=== PATIENT | female | born 1950 | race Caucasian/White ===

== ENCOUNTER 2019-01-07 00:50 | Outpatient (CLI) | payer MEDICARE, OTHER, SELFPAY ==
--- NOTE | 2019-01-07 15:00 | DI.RAD_ITS ---
SYMPTOMS/DIAGNOSIS: SCREENING FOR OSTEOPOROSIS IN A POSTMENOPAUSAL WOMAN, Z78.0 DEXA SCAN: Routine examination. Comparison is 2006. Evaluation of the lateral spine shows no compression fracture deformities. Evaluation of the left hip shows a total T score of -1.6 and a Z score of -0.3, consistent with osteopenia and an increased fracture risk. This compares with a total T score of -1.5 from the prior examination. Evaluation of the lumbar spine shows a total T score of -2.5 and a Z score of - 0.6. This is consistent with osteoporosis and a high fracture risk. This compares with a total T score of -2.6 from 2007. IMPRESSION: Osteoporosis in the lumbar spine.
--- NOTE | 2019-01-07 15:02 | DI.MAMMO_ITS ---
SYMPTOM/DIAGNOSIS: SCREENING, Z12.31, FAMILY H/O BREAST CA IN SISTER MAMMOGRAMS: Mammograms were interpreted according to the usual protocol including computer analysis with CAD system, tomosynthesis and C view imaging. Comparison is with the prior examinations. No suspicious masses or microcalcifications are seen. There is no definite evidence of malignancy. IMPRESSION: Negative mammogram. Routine screening is recommended. Category 1, breast density B. SA ASSESSMENT OF FINDINGS: Negative. Category 1. Patient will receive a letter notifying them of these results. BI-RADS category B. There are scattered areas of fibroglandular density.
== END 2019-01-07 01:10 ==
PROVIDERS: PCP Family Medicine; Visit Provider Family Medicine
DX: M81.0 Age-related osteoporosis without current pathological fracture (principal); Z78.0 Asymptomatic menopausal state; Z12.31 Encounter for screening mammogram for malignant neoplasm of breast
CPT/HCPCS: 77063; 77067; 77080

== ENCOUNTER → 2019-02-14 10:21 | Outpatient (BNVA) | payer MEDICARE, OTHER, SELFPAY | PROVIDERS: PCP Family Medicine; Referring Provider Family Medicine; Visit Provider Physical Therapy Assistant | DX: Z12.11 Encounter for screening for malignant neoplasm of colon (principal); I10 Essential (primary) hypertension ==

== ENCOUNTER 2019-03-05 10:00 | Outpatient (REF) | payer MEDICARE, OTHER, SELFPAY ==
[2019-03-05 13:04] LABS: HCT 44.3 % (36.0-46.0); HGB 14.9 g/dL (12.0-15.5); Mean Corp. HGB Concentration 33.6 g/dL (32.0-36.0); Mean Corpuscular Hemoglobin 30.2 pg (27.0-33.0); Mean Corpuscular Volume 89.7 fL (80-95); Mean Platelet Volume 10.6 fL (8.0-11.0); Platelet Count 294 x1000/uL (130-400); RBC 4.94 m/cumm (4.00-5.20); RBC Distribution Width 14.4 % (11.7-14.6); White Blood Cell Count 12.23 k/cumm (4.4-10.8)
[2019-03-05 13:26] LABS: ALT 37 U/L (12-78); AST 27 U/L (15-37); Albumin 3.6 g/dL (3.4-5.0); Alkaline Phosphatase 107 U/L (46-116); Anion Gap 10.9 mmol/L (3-11); BUN 14 mg/dL (7-18); Bilirubin, Total 0.2 mg/dL (0.2-1.0); CO2 25.1 mmol/L (21.0-32.0); CREATININE 1.05 mg/dL (0.55-1.02); Calcium 9.1 mg/dL (8.5-10.1); Calculated LDL 78 mg/dL; Chloride 105 mmol/L (98-107); Cholesterol 140 mg/dL (50-200); Estimated GFR 52.43 (mL/min/1.73m2); Glucose 108 mg/dL (70-100); HDL Cholesterol 32 mg/dL (40-60); Potassium 4.4 mmol/L (3.5-5.1); Sodium 141 mmol/L (136-145); TSH (W/Ref FT4) 2.15 uIU/mL (0.358-3.74); Total Protein 7.2 g/dL (6.4-8.2); Triglyceride 150 mg/dL (30-150)
== END 2019-03-05 10:20 ==
LOC: NCHCN 10:00
PROVIDERS: PCP Family Medicine; Visit Provider Family Medicine
DX: E04.1 Nontoxic single thyroid nodule (principal); E66.9 Obesity, unspecified
CPT/HCPCS: 80053; 80061; 83721; 85027; 84443

== ENCOUNTER 2019-03-10 06:17 | Day surgery (SDC) | payer MEDICARE, OTHER, SELFPAY ==
[2019-03-10 06:31] VITALS: BP 143/103; PULSE 115; RESP 19; TEMP 37.1; O2SAT 95
--- NOTE | 2019-03-10 06:46 | W.COLOREPORT ---
Date of service: 03/10/19 Time of Service: : Colonoscopy Report Date of procedure: 03/10/19 Pre-op diagnosis general: Colon Cancer Screening Post-op diagnosis procedure note: other (Splenic flexure polyp) Procedure: Colonoscopy with polypectomy by cold forceps Surgeon: Samara Fortune Anesthesia proc note operative: other (General/ ASA 2/Karson Miller, ROGELIO) Estimated blood loss (mL): 3 Pathology: other (splenic flexure polyp) Complications: None Disposition: same day Indications: Mrs. Johnston was seen in the office for a screening colonoscopy. She denies any changes in bowel habits. Risks, benefits and complications have been reviewed. Complications include but are not limited to bleeding, pain, perforation, missed small lesion/polyp, sore throat, aspiration and adverse reaction to the medications. Questions were entertained and answered to their satisfaction and they wished to proceed. No guarantees were given or implied. Prep: Miralax/Dulcolax Procedure Start Time: :27 Procedure End Time: 07:59 Retraction Time: 17 minutes Findings: One small polyp at the splenic flexure Procedure Description: After informed consent was obtained the patient was taken to the procedure room and placed in a left decubitous position. Monitors were applied and a time out was done. The patients name, date of , procedure, allergies to medications and metal in their body was reviewed. The patient was then sedated. Once sedated and comfortable a rectal exam was done. External exam was normal. Internal exam revealed a normal sphincter tone and no palpable masses. The scope was then introduced and retro-flexed. Grade 1 internal hemorrhoids were identified. The scope was then advanced to the cecum without difficulty. The TI and appendiceal orifice were identified. The prep was good. The scope was then slowly retracted over 17 minutes back into the rectum. Polyps were removed with cold forceps at the splenic flexure. The scope was removed and the patient was woken up and taken back to Same day surgery in stable condition. The patient tolerated the procedure well and there were no immediate complications. Follow up: The patient should follow up in 3-5 years unless they develop changes in bowel habits or other new gastrointestinal complaints.
[2019-03-10] MEDS: Lactated Ringers 1,000 ML 80 ML IV (06:51)
--- NOTE | 2019-03-10 06:51 | W.PM.DSUDISC ---
Discharge Plan Disposition Patient Disposition: HOME Condition: Good Discharge Details Reason For Visit: Colon Cancer Screening Attending Provider: Samara Fortune Primary Care Provider: Marisol Stephens Home Meds and New Rx's Prescriptions: Continued naproxen 500 mg tablet 500 mg PO BID RF: 0 simvastatin 20 MG tablet 20 mg PO HS RF: 0 omeprazole [Prilosec] 20 MG capsule,delayed release(DR/EC) 20 mg PO BID RF: 0 oxycodone 5 MG tablet 5 mg PO BID RF: 0 clonidine HCl 0.1 MG tablet 0.1 mg PO DAILY RF: 0 tramadol 50 MG tablet 50 mg PO PRN PRNRF: 0 trazodone 100 MG tablet 100 mg PO HS RF: 0 zolpidem 10 MG tablet 10 mg PO HS RF: 0 Lyrica 50 MG capsule 50 mg PO HS RF: 0 venlafaxine 150 MG tablet extended release 24hr 225 mg PO DAILY RF: 0 vitamin E 1,000 unit Capsule 2,000 unit PO DAILY RF: 0 calcium carbonate [Calcium 600] 600 mg calcium (1,500 mg) Tablet 1,200 mg PO BID RF: 0 Centrum Silver Women 8 mg iron-400 mcg-300 mcg Tablet 1 tab PO DAILY RF: 0 Discontinued polyethylene glycol 3350 17 gram/dose powder 238 g PO ONCE Qty: 238 RF: 0 bisacodyl [Dulcolax (bisacodyl)] 5 mg tablet,delayed release (DR/EC) 5 mg PO ONCE Qty: 4 RF: 0 Discharge Instructions Instructions: Colonoscopy (DC), Colorectal Polyps (DC) Additional Instructions: Findings: one polyp at the splenic flexure Follow up: 3-5 years Please call if you develop: fevers >101.5 Nausea or Vomiting Abdominal pain that is not transient DAY SURGERY UNIT POST COLONOSCOPY INSTRUCTIONS 1. Because there will be medication in your system for the next 24 hours, you may feel a little sleepy. Your coordination will be affected. Therefore: a. Do not drive or operate dangerous equipment for 24 hours. b. Do not drink alcohol beverages for 24 hours (not even beer). c. Plan to go home and rest for the day. 2. Generally there are no restrictions on your activity after a day or so has gone by, but you may feel a bit fatigued for a few days. 3 After you arrive home you may have a light meal and return to a normal diet as you can tolerate it without feeling sick to your stomach. 4. After surgery, you may feel pain or discomfort. This should be only transient, but if it persists please contact your doctor. 5. If there are any questions regarding the findings of your procedure, please feel free to contact your doctor. 6. If you are unable to contact your doctor with a problem, contact the hospital at [phone]. 7. Continue all your regular medications unless directed otherwise. I understand the above instructions and have no questions. Signature of Patient or Responsible Adult Escort Date/Time Name of Responsible Adult Escort Signature of Nurse Date/Time Activity:: Activity as Tolerated Diet:: As Tolerated Discharge Orders Discharge Orders: Discharge Order (Routine); Ordered 03/10/19 Ordered By: Samara Fortune DS: Diagnosis Discharge Diagnosis (1) S/P colonoscopy: Status: Acute (2) Colorectal polyp detected on colonoscopy: Status: Acute
--- NOTE | 2019-03-10 07:54 | BOWEL_PTH ---
PATIENT: Zuleyma Johnston LOC: [facility] U#:[id number] AGE/SX: 68/F ROOM: RE03/10/[address]: Samara Fortune MD : 1950 BED: DIS: 03/10/2019 SPEC #: [id number] RECD: 03/10/19 12:42 STATUS: MATTHEW REQ #: [id number] YULIYA: 03/10/19 07:[address]: Samara Fortune DEPT: Surgical Specimen RECD BY: Akilah Amos ENTERED: 03/10/19 12:43 SP TYPE: Bowel OTHR DR: Marisol Stephens Tissues: 1 - BIOPSY BOWEL Procedures: GROSS AND MICRO LEVEL 4 Comments: [id number]
[2019-03-10 09:08] VITALS: BP 146/50; PULSE 88; RESP 16; TEMP 36.6; O2SAT 95
== END 2019-03-10 09:28 | disposition home or self-care (01) ==
PROVIDERS: PCP Family Medicine; Visit Provider Surgery
PROC: 0DJD8ZZ Inspection of Lower Intestinal Tract, Via Natural or Artificial Opening Endoscopic (ICD-10-PCS; CPT 45378; principal; 2019-03-10 07:30)
DX: Z12.11 Encounter for screening for malignant neoplasm of colon (principal); D12.4 Benign neoplasm of descending colon; K64.0 First degree hemorrhoids; K21.9 Gastro-esophageal reflux disease without esophagitis
CPT/HCPCS: 45380; 88305

== ENCOUNTER 2019-04-30 12:34 | Emergency (ER) | payer MEDICARE, OTHER, SELFPAY ==
[2019-04-30 12:44] VITALS: BP 138/73; PULSE 90; RESP 16; TEMP 36.6; O2SAT 95
--- NOTE | 2019-04-30 12:55 | DI.US_ITS ---
SYMPTOMS/DIAGNOSIS: CALF SWELLING, TENDERNESS FOR 4 WKS RIGHT LOWER EXTREMITY ULTRASOUND: The deep veins of the right lower extremity show normal compression, augmentation and color flow. No evidence of a deep venous thrombus is identified. The saphenofemoral junction is unremarkable. There is edema seen in the soft tissues of the lower extremity. There are some small fluid collections seen in the soft tissues of the lower extremity. The largest is seen posterior to the knee and measures 3.9 x 0.9 x 2.0 cm. This may represent a popliteal cyst. The possibility of resolving hematomas or seromas or abscesses can not be entirely excluded. Please correlate with the patient's clinical history. IMPRESSION: 1. No evidence of a right lower extremity deep venous thrombus. 2. Edema in the right lower extremity soft tissues. 3. Fluid collections seen in the lower extremity as described above. The findings were discussed with the emergency department on the date of the examination.
--- NOTE | 2019-04-30 13:08 | W.ED.GENAD ---
Discharge Plan Disposition Patient Disposition: HOME Condition: Good Discharge Details Chief Complaint: Vascular Clinical Impression: Gunter's cyst, Knee pain, right Primary Care Provider: Marisol Stephens ED Provider: Deandre Pierre Home Meds and New Rx's Prescriptions: Continued naproxen 500 mg tablet 500 mg PO BID RF: 0 simvastatin 20 MG tablet 20 mg PO HS RF: 0 omeprazole [Prilosec] 20 MG capsule,delayed release(DR/EC) 20 mg PO BID RF: 0 oxycodone 5 MG tablet 5 mg PO BID RF: 0 clonidine HCl 0.1 MG tablet 0.1 mg PO DAILY RF: 0 tramadol 50 MG tablet 50 mg PO PRN PRNRF: 0 trazodone 100 MG tablet 100 mg PO HS RF: 0 zolpidem 10 MG tablet 10 mg PO HS RF: 0 pregabalin [Lyrica] 50 MG capsule 50 mg PO HS RF: 0 venlafaxine 150 MG tablet extended release 24hr 225 mg PO DAILY RF: 0 vitamin E 1,000 unit Capsule 2,000 unit PO DAILY RF: 0 calcium carbonate [Calcium 600] 600 mg calcium (1,500 mg) Tablet 1,200 mg PO BID RF: 0 Centrum Silver Women 8 mg iron-400 mcg-300 mcg Tablet 1 tab PO DAILY RF: 0 Discharge Instructions Instructions: Knee Pain (ED) Additional Instructions: At this time your ultrasound shows no evidence of blood clot per the radiologist and your x-ray shows no evidence of fracture. And concern for mild knee sprain and meniscal injury in addition to the Gunter's cyst causing her pain that we did notice on the ultrasound. Please use Tylenol and Motrin as needed for pain, keep the JABARI stockings on as often as possible. Use the knee brace as directed and continue to use the cane. If you notice any worsening of your symptoms, or any new symptoms such as vomiting, diarrhea, fever, chills, shortness of breath, chest pain, numbness, weakness, or fainting , please return immediately to the emergency department for reevaluation. Please follow up with your primary care provider as soon as possible for reassessment and reevaluation. As always, it was a pleasure participating in your medical care today. Referrals: Marisol Stephens [Primary Care Provider] - Medical Decision Making This is a pleasant 68-year-old female who presents today for 3 weeks of right calf and knee swelling and tenderness. Pain has not been improved with any home remedies. Exam demonstrates mild trace pitting edema, minimal swelling, mild to moderate tenderness over the calf. Risk factors are low for DVT, however signs and symptoms are concerning for this. We will get a ultrasound of her lower extremity to rule out significant DVT. 2:[address] Augustin from radiology sees no evidence of DVT on right lower extremity ultrasound, there is evidence of a potential Gunter's cyst. X-rays negative for acute process or fracture. Signs and symptoms do appear to clinically correlate with Gunter's cyst, however I am concerned for mild meniscal injury. We have the patient a hinged knee brace, she does not want crutches and would like to stick with her current cane. We will give JABARI stockings, recommend NSAIDs at home and close follow-up for potential repeat ultrasound and reassessment by PCP. If the patient fails conservative management with NSAIDs, knee brace, and stockings will recommend potential future orthopedic follow-up. I have extensively reviewed the treatment plan and discharge instructions with the patient. I have addressed all patient concerns at this time. The patient was made aware of what symptoms to monitor for that would warrant a return to the emergency department. Discussed the plan with the patient, they demonstrate verbal understanding and agreement with our assessment and plan at this time. HPI General Date/Time Provider Initiated Documentation: 04/30/19 12:35. HPI Narrative: This is a pleasant 68-year-old female who presents today for evaluation of right leg pain for the last 3 weeks. Patient states that she noticed mild swelling in her calf, which eventually progressed to her knee. Pain is made worse with ambulation, movement and touch. Swelling is mild to moderate. Not improved by any modifying factors. Denies PE risk factors such as recent long car rides, immobilization, recent surgery, prior history of DVT or PE, family history of PE or DVT, morbid obesity, exogenous estrogen and smoking, hemoptysis, history of cancer. She denies any chest pain, shortness of breath, pleuritic chest pain, arm neck or shoulder pain, chest tightness. She denies any exertional chest pain or shortness of breath symptoms. Related Data Home Medications Medication Instructions Recorded Confirmed omeprazole [Prilosec] 20 mg PO BID 09/08/13 04/30/19 oxycodone 5 mg PO BID 09/08/13 04/30/19 simvastatin 20 mg PO HS 09/08/13 04/30/19 clonidine HCl 0.1 mg PO DAILY 10/06/13 04/30/19 pregabalin [Lyrica] 50 mg PO HS 11/16/16 04/30/19 tramadol 50 mg PO PRN PRN 11/16/16 04/30/19 trazodone 100 mg PO HS 11/16/16 04/30/19 venlafaxine 225 mg PO DAILY 11/16/16 04/30/19 zolpidem 10 mg PO HS 11/16/16 04/30/19 naproxen 500 mg tablet 500 mg PO BID 01/16/19 04/30/19 calcium carbonate [Calcium 600] 1,200 mg PO BID 03/04/19 04/30/19 vitamin E 2,000 unit PO DAILY 03/04/19 04/30/19 Centrum Silver Women 1 tab PO DAILY 03/10/19 04/30/19 Allergies Allergy/AdvReac Type Severity Reaction Status Date / Time lorazepam AdvReac Severe looses all Unverified 04/30/19 12:47 memory codeine AdvReac Mild Nausea Unverified 04/30/19 12:47 General Stated Complaint: Vascular MARYJANE: 3 Review of Systems Review of Systems All systems reviewed & are unremarkable except as noted in HPI and below PFSH Medical History (Updated 03/10/19 @ 08:08 by Samara Fortune MD) Bilateral knee pain (Chronic) Chronic maxillary sinusitis (Chronic) Colorectal polyp detected on colonoscopy (Acute ~03/10/19) Constipation (Chronic) Depression (Chronic) Detached retina (Resolved) GERD (gastroesophageal reflux disease) (Chronic) Hyperlipidemia (Chronic) Insomnia (Chronic) Low back pain (Chronic) Menopause (Chronic) Obesity (Chronic) Thyroid nodule (Acute) Surgical History (Updated 03/10/19 @ 06:52 by Samara Fortune MD) History of colonoscopy (Chronic) History of tonsillectomy (Chronic) Hx of detached retina repair (Acute) OS x 2 w/contact S/P colonoscopy (Acute ~03/10/19) Social History Smoking/Tobacco Use Status: Current every day Tobacco Type: cigarettes Tobacco: How many years used: 50 Alcohol Intake: never Drug use: Never Substance use type: does not use Do you feel safe at home: Yes Do you feel safe in your relationship?: Yes Exam Narrative Exam Narrative: 1.Const: Well-nourished, Well-developed, appearing stated age 2.Eyes: PERRL, no conjunctival injection, and symmetrical lids. 3.ENT: Atraumatic external nose and ears. Moist MM. Neck: Symmetric, trachea midline, No thyromegaly. 4.CVS: +S1/S2, No murmurs or gallops. Peripheral pulses 2+ and equal in all extremities. Brisk capillary refill in all extremities. 5.RESP: Unlabored respiratory effort. Clear to auscultation bilaterally. No wheezes rales or rhonchi 6.GI: Soft, Nontender/Nondistended, No hepatosplenomegaly. No guarding or rebound. 7.MSK: Normocephalic/Atraumatic, Extremities w/o deformity. No cyanosis or clubbing, Normal movement of all extremities. Mild trace to +1 pitting edema in the right lower extremity. Notable tenderness in the calf, mild swelling around the right knee. No joint laxity, no significant worsening of tenderness with varus or valgus stressing. No evident of joint laxity for anterior posterior drawer test. Mild tenderness on palpation of the medial lateral aspect in general. No redness, no warmth. Radial pulse, dorsalis pedis and posterior tibial pulses +2 bilaterally. Brisk capillary refill, no temperature abnormality or difference between the 2 lower extremities. 8.Skin: Warm, Dry. No rashes or lesions. 9.Neuro: product safety lead II-XII grossly intact. Sensation grossly intact, no focal neurologic deficits. 10.Psych: (AAO) x3. Appropriate mood and affect Course Vital Signs Temperature 36.6 C 04/30/19 12:44 Pulse 90 04/30/19 12:44 Respiratory Rate 16 04/30/19 12:44 Blood Pressure 138/73 04/30/19 12:44 Pulse Oximetry 95 04/30/19 12:44 Temperature 36.6 C 04/30/19 12:44 Temperature Source Temporal Artery Scan 04/30/19 12:44 Pulse 90 04/30/19 12:44 Respiratory Rate 16 04/30/19 12:44 Blood Pressure 138/73 04/30/19 12:44 Blood Pressure Position Sitting 04/30/19 12:44 Pulse Oximetry 95 04/30/19 12:44 Oxygen Delivery Method Room Air 04/30/19 12:44 Oxygen Flow Rate 0 04/30/19 12:44
[2019-04-30 13:12] LABS: Abs Immature Grans 0.03 k/cumm (0.0-0.09); Absolute Basophil Count 0.05 k/cumm (0.0-0.2); Absolute Eosinophil Count 0.23 k/cumm (0.0-0.7); Absolute Lymphocyte Count 3.52 k/cumm (1.2-3.4); Absolute Monocyte Count 0.71 k/cumm (0.11-0.7); Basophils % 0.4; HCT 41.9 % (36.0-46.0); Immature Grans % 0.3; Mean Corp. HGB Concentration 33.4 g/dL (32.0-36.0); Mean Corpuscular Hemoglobin 29.9 pg (27.0-33.0); Mean Corpuscular Volume 89.5 fL (80-95); Mean Platelet Volume 9.6 fL (8.0-11.0); Monocytes % 6.1; Neutrophils % 61.2; Platelet Count 321 x1000/uL (130-400); RBC 4.68 m/cumm (4.00-5.20); RBC Distribution Width 14.2 % (11.7-14.6); White Blood Cell Count 11.72 k/cumm (4.4-10.8)
[2019-04-30 13:14] LABS: Absolute Neutrophil Count 7.17 k/cumm (1.2-6.7)
[2019-04-30 13:36] LABS: ALT 33 U/L (14-59); AST 23 U/L (15-37); Albumin 3.6 g/dL (3.4-5.0); Alkaline Phosphatase 100 U/L (46-116); BUN 8 mg/dL (7-18); Bilirubin, Total 0.3 mg/dL (0.2-1.0); Calcium 8.8 mg/dL (8.5-10.1); Chloride 104 mmol/L (98-107); Estimated GFR 55.47 (mL/min/1.73m2); Glucose 109 mg/dL (70-100); Potassium 4.1 mmol/L (3.5-5.1); Sodium 139 mmol/L (136-145); Total Protein 7.2 g/dL (6.4-8.2)
[2019-04-30 13:45] LABS: Prothrombin Time 10.2 sec (9.3-11.0)
--- NOTE | 2019-04-30 13:48 | DI.RAD_ITS ---
SYMPTOMS/DIAGNOSIS: PAIN AND SWELLING AROUND RT KNEE FOR 4 WKS RIGHT KNEE: Three views. No priors. No acute fracture or dislocation is seen. There is a small enthesophyte at the superior aspect of the patella. There is a small joint effusion. The soft tissues are otherwise unremarkable. IMPRESSION: Small joint effusion. Otherwise unremarkable examination.
[2019-04-30 14:23] VITALS: BP 119/77; PULSE 80; RESP 16; TEMP 36.6; O2SAT 98
== END 2019-04-30 14:25 | disposition home or self-care (01) ==
PROVIDERS: Emergency Provider Student in an Organized Health Care Education/Training Program; PCP Family Medicine
DX: M71.21 Synovial cyst of popliteal space [Baker], right knee (principal); M25.561 Pain in right knee
CPT/HCPCS: 29505; 36415; 73562; 80053; 99284; 85025; 85610; 85730; 93971; 99285; L1820

== ENCOUNTER 2019-09-08 01:23 | Outpatient (CLI) | payer MEDICARE, OTHER, SELFPAY ==
[2019-09-08 12:34] LABS: CREATININE 1.02 mg/dL (0.55-1.02); Estimated GFR 54.22 (mL/min/1.73m2)
[2019-09-08] MEDS: Omnipaque 350 MG/ML 100 ML BTL IV (12:50)
--- NOTE | 2019-09-08 12:56 | DI.CT_ITS ---
EXAM: CT BRAIN CTA CLINICAL HISTORY: DIZZINESS/VERTIGO AND ARM WEAKNESS, R42, ? CVA TECHNIQUE: Before and after IV contrast. COMPARISON: HEAD AND CSPINE W/O CONTRAST from 05/22/2017 FINDINGS: No intracranial hemorrhage, mass or infarct is seen. The ventricles are normal in size. There are no abnormal enhancing lesions. CT angiography images show no evidence of vascular occlusion, dissect ion or significant stenosis. There is no gross evidence of an aneurysm. IMPRESSION: Negative head CT. Negative CTA of the brain.
[2019-09-08] MEDS: Normal Saline - Diluent 50 ML VIAL IV (13:21)
== END 2019-09-08 01:43 ==
PROVIDERS: PCP Family Medicine; Visit Provider Family Medicine
DX: Z01.812 Encounter for preprocedural laboratory examination (principal); R42 Dizziness and giddiness; M62.81 Muscle weakness (generalized); Z13.89 Encounter for screening for other disorder
CPT/HCPCS: 70496; 82565; J3490

== ENCOUNTER 2022-06-19 01:25 | Outpatient (CLI) | payer MEDICARE, OTHER, SELFPAY ==
--- NOTE | 2022-06-19 09:30 | DI.CTLCSR_ITS ---
Exam(s) CT CHEST LUNG CANCER SCREEN EXAM: CT CHEST LUNG CANCER SCREEN CLINICAL HISTORY: CIGARETTE SMOKER, F17.210 TECHNIQUE: Imaging Protocol: Axial computed tomography images with coronal and sagittal reformatted images were created and reviewed COMPARISON: CT ABD PELVIS WO CONTRAST from 09/03/2017 FINDINGS: Tracheobronchial tree: Patent where visualized. Pulmonary parenchyma: No consolidation or dominant measurable mass. There is scarring or atelectasis in the right lung base. Lung Nodules: None. Mediastinum and Isaura: No dominant adenopathy or fluid collection. The esophagus is unremarkable. Thyroid gland: Several calcified thyroid nodules are seen. The largest measures 1.3 cm. Nonemergent thyroid ultrasound is recommended for further evaluation. Lymph nodes: Unremarkable. Pleura: No effusion or pneumothorax. Heart: The heart is not dilated. Mild coronary artery calcification is present. No pericardial effus ion. Aorta: Thoracic aorta non-dilated.Atherosclerosis is present. Upper abdomen: Unremarkable. Soft Tissues: Unremarkable. Bones: Within normal limits. There is an old L1 compression fracture deformity. This has progressed since the CT scan from 09/03/2017. IMPRESSION: 1. No pulmonary nodules. 2. Thyroid nodules. The largest measures 1.3 cm. Nonemergent thyroid ultrasound is recommended for further evaluation. This is an unexpected finding. Lung RADS Cat 1 - Negative: No nodules and definitely benign nodules Modifier S Lung-RADS 1.0 CATEGORIES: Category 0 - Prior chest CT exam(s) being located for comparison. Category 1 - Annual screening in 12 months. No nodules or definitely benign nodules. Category 2 - Annual screening in 12 months. Benign appearance. Nodules with low likelihood of becomin g active cancer. Category 3 - 6-month follow-up. Probably benign. Short-term follow-up suggested. Nodules with low lik elihood of becoming active cancer. Category 4A - 3-month follow-up and CT/PET if >8 mm in size. Suspicious finding. Findings which requi re additional testing. Category 4B - Findings which require additional testing and tissue sampling. Suspicious finding. Category 4X - Category 3 or 4 nodules with additional features or imaging findings that increases the suspicion of malignancy. Modifier S- Potentially clinically significant finding. (Non lung cancer) Unexpected findings RADIATION DOSE DELIVERED: 72.44mGy.cm Total DLP 1.84mGy CTDIvol 72.44mGy.cm Total DLP 1.84mGy CTDIvol DATA REPOSITORY: All CT scans at this facility are submitted to the National Radiology Data Registry (NRDR) Dose Index Registry (DIR) with the [employer] ([employer]). RADIATION OPTIMIZATION: All CT scans at this facility use at least one of these dose optimization te chniques: automated exposure control; mA and/or kV adjustment per patient size (includes targeted exa ms where dose is matched to clinical indication); or iterative reconstruction.
== END 2022-06-19 01:45 ==
LOC: DI 01:25
PROVIDERS: PCP Family Medicine; Visit Provider Family Medicine
DX: F17.210 Nicotine dependence, cigarettes, uncomplicated (principal); Z12.2 Encounter for screening for malignant neoplasm of respiratory organs; E04.2 Nontoxic multinodular goiter
CPT/HCPCS: 71271

== ENCOUNTER 2022-11-15 13:09 | Outpatient (REF) | payer MEDICARE, OTHER, SELFPAY ==
[2022-11-15 15:09] LABS: HCT 40.8 % (36.0-46.0); HGB 13.8 g/dL (11.2-15.7); MCH 30.3 pg (27.0-33.0); MCHC 33.8 % (32.0-36.0); MCV 90 fL (80-95); MPV 9.7 fL (8.0-11.0); Platelet Count 285 10^3/uL (130-400); RBC 4.56 10^6/uL (3.93-5.22); RDW 14.1 % (11.7-14.6); RDW-SD 45.3 fL; WBC 11.65 10^3/uL (4.4-10.8)
[2022-11-15 15:46] LABS: Anion Gap 7.9 mmol/L (3-11); BUN 8 mg/dL (7-18); CO2 29.1 mmol/L (21.0-32.0); Calcium 9.3 mg/dL (8.5-10.1); Chloride 100 mmol/L (98-107); Estimated GFR 60.61 (mL/min/1.73m2); Glucose 95 mg/dL (74-106); Potassium 4.3 mmol/L (3.5-5.1); Sodium 137 mmol/L (136-145); TSH (W/Ref FT4) 1.34 uIU/mL (0.36-3.74)
== END 2022-11-15 13:10 | disposition home or self-care (01) ==
LOC: NCHCN 13:09
PROVIDERS: PCP Family Medicine; Visit Provider Family Medicine
DX: E04.1 Nontoxic single thyroid nodule (principal); R42 Dizziness and giddiness
CPT/HCPCS: 80048; 85027; 84443

== ENCOUNTER 2022-12-15 17:40 | Emergency (ER) | payer MEDICARE, OTHER, SELFPAY ==
[2022-12-15] VITALS (38 sets, daily range): BP systolic 111–159; BP diastolic 53–90; PULSE 86–123; RESP 13–23; TEMP 36.2–37.8; O2SAT 81–100
--- NOTE | 2022-12-15 18:39 | ED.GENADUL_ITS ---
Discharge Plan Disposition Patient Disposition: Home Condition: Improving Discharge Details Clinical Impression: Enteritis Primary Care Provider: Marisol Stephens ED Provider: Callie Pride Home Meds and New Rx's Prescriptions: New ondansetron 8 mg tablet,disintegrating 8 mg PO Q8H PRN (Reason: nausea and vomiting) Qty: 20 0RF dicyclomine 20 mg tablet 20 mg PO QID Qty: 30 0RF No Action naproxen 500 mg tablet 500 mg PO BID gabapentin 100 mg capsule 100 mg PO QHS meclizine 25 mg tablet 25 mg PO Q6H PRN PRN (Reason: vertigo) acetylcysteine 600 mg capsule 600 mg PO DIRECTED PRN (Reason: for mood) fluticasone propionate 50 mcg/actuation spray,suspension 1 spray intranasal BID PRN Rx Instructions: administer into each nostril simvastatin 20 MG tablet 20 mg PO HS omeprazole [Prilosec] 20 MG capsule,delayed release(DR/EC) 20 mg PO QDAY oxycodone 5 MG tablet 5 mg PO BID clonidine HCl 0.1 MG tablet 0.1 mg PO DAILY tramadol 50 MG tablet 50 mg PO PRN PRN trazodone 100 MG tablet 100 mg PO HS zolpidem 10 MG tablet 10 mg PO HS pregabalin [Lyrica] 50 MG capsule 50 mg PO HS Patient Comments: no longer taking venlafaxine 150 MG tablet extended release 24hr 225 mg PO DAILY Centrum Silver Women 8 mg iron-400 mcg-300 mcg Tablet 1 tab PO DAILY vitamin E 670 mg (1,000 unit) capsule See Rx Instructions PO DAILY PRN Rx Instructions: orally daily PRN; Discharge Instructions Instructions: Abdominal Pain (ED) Additional Instructions: Take Zofran 3 times a day as needed for nausea and vomiting. Use the Bentyl as needed for spasm Tylenol as needed for fever. Return to ED for high fever or shaking chills, pain localized to 1 area of your belly, bloody emesis or stool, any other concerns. Discharge Data Discharge Date/Time-TO BE ENTERED AT DEPARTURE: 12/15/22 23:[address] abdomen and pelvis: Appendix is normal. Proximal small bowel features including mild thickening and air-fluid levels suggest enteritis. Fatty liver. Gallbladder sludge. Stable left adrenal nodule consistent with benign adenoma. Uterine atrophy. Small appearing free fluid in the pelvic cul-de-sac. Lumbar spine degenerative change and L4-5 fusion. Compression fracture of L1 with chronic appearance. Chest x-ray: No acute disease. Degenerative thoracic spine features. 2244: Patient is taking p.o. without difficulty. Test results were discussed with her. She was able to give a stool sample. We will send her home with Zosyn ODT's and Bentyl for the cramping. I have asked her to call her primary care doctor on Sunday for follow-up check she can take Tylenol as needed for pain and/or fever. She will return for uncontrolled fever, belly pain localized to 1 area, bloody emesis or stool, any other concerns. Patient does not want to wait for C. difficile results as her has heart issues and they need to get home. I will discharge pt. now. She was discharged with Bentyl for spasm and Zofran as needed for nausea. Clear fluids and bland diet increasing as tolerated. 12/19/21 Stool sample is negative including for C.Diff. Medical Records Medical records reviewed: Yes I reviewed the patient's medical records. Lab Data Lab results reviewed: Yes I reviewed the patient's lab results. ECG Data Interpretation: EKG: Sinus tach at 100, T wave flattening in 1 and aVL, downgoing T waves V6 HPI General Date/Time Provider Initiated Documentation: 12/15/22 18:11 . HPI Narrative: This 72-year-old female patient presents with a chief complaint of diffuse abdominal pain, nausea, vomiting, and diarrhea. Patient states that this all began two nights ago. She has had a decent amount of vomiting and diarrhea. She describes the belly pain as diffuse and crampy in nature. There has been no black or bloody stool. There is no black or bloody emesis. She says she felt hot today and about an hour prior to coming in had some shaking. She has not taken her temperature. She has no dysuria. There is no headache URI symptoms, shortness of breath, or chest pain. She later told nursing that she was having a little bit of chest discomfort . She is not keeping much down for food and is able to keep some fluids down. Patient has had no recent camping or travel out of the country. Related Data Home Medications Medication Instructions Recorded Confirmed omeprazole 20 mg capsule,delayed 20 mg PO QDAY 09/08/13 12/15/22 release (Prilosec) oxycodone 5 mg tablet 5 mg PO BID 09/08/13 12/15/22 simvastatin 20 mg tablet 20 mg PO HS 09/08/13 12/15/22 clonidine HCl 0.1 mg tablet 0.1 mg PO DAILY 10/06/13 12/15/22 pregabalin 50 mg capsule (Lyrica) 50 mg PO HS 11/16/16 04/30/19 tramadol 50 mg tablet 50 mg PO PRN PRN 11/16/16 12/15/22 trazodone 100 mg tablet 100 mg PO HS 11/16/16 12/15/22 venlafaxine 150 mg tablet,extended 225 mg PO DAILY 11/16/16 12/15/22 release 24 hr zolpidem 10 mg tablet 10 mg PO HS 11/16/16 12/15/22 naproxen 500 mg tablet 500 mg PO BID 01/16/19 12/15/22 multivit with 1 tab PO DAILY 03/10/19 12/15/22 poujnnzf-lfqj-JY-lutein 8 mg iron-400 mcg-300 mcg tablet (Centrum Silver Women) gabapentin 100 mg capsule 100 mg PO QHS 06/07/22 12/15/22 vitamin E 670 mg (1,000 unit) See Rx Instructions PO DAILY PRN 06/07/22 12/15/22 capsule acetylcysteine 600 mg capsule 600 mg PO DIRECTED PRN for mood 11/22/22 12/15/22 fluticasone propionate 50 1 spray intranasal BID PRN 11/22/22 12/15/22 mcg/actuation nasal spray,suspension meclizine 25 mg tablet 25 mg PO Q6H PRN PRN vertigo 11/22/22 12/15/22 dicyclomine 20 mg tablet 20 mg PO QID #30 tabs 12/15/22 ondansetron 8 mg disintegrating 8 mg PO Q8H PRN nausea and 12/15/22 tablet vomiting #20 tabs Previous Rx's Medication Instructions Recorded dicyclomine 20 mg tablet 20 mg PO QID #30 tabs 12/15/22 ondansetron 8 mg disintegrating 8 mg PO Q8H PRN nausea and 12/15/22 tablet vomiting #20 tabs Allergies Allergy/AdvReac Type Severity Reaction Status Date / Time lorazepam AdvReac Severe looses all Unverified 12/15/22 18:04 memory codeine AdvReac Mild Nausea Unverified 12/15/22 18:04 General Stated Complaint: Nausea/Vomit/Diar MARYJANE: 3 Review of Systems Constitutional Constitutional: Denies chills, Denies fever(s), Denies headache(s) and Denies weakness Eyes Eyes: Denies diplopia and Reports other (no redness) ENT Ears, Nose, Mouth, and Throat: Denies otalgia, Denies headache(s), Denies nasal congestion, Denies nasal discharge, Denies neck pain and Denies sore throat Cardiovascular Cardiovascular: Denies chest pain, Denies palpitations and Denies dyspnea Respiratory Respiratory: Denies cough and Denies dyspnea Gastrointestinal Gastrointestinal: Reports abdominal pain, Reports diarrhea, Reports nausea and Reports vomiting Genitourinary Genitourinary: Denies dysuria Musculoskeletal Musculoskeletal: Denies myalgias, Denies muscle weakness, Denies neck pain, Denies numbness and Reports other (edema) Integumentary/Breasts Skin/Breast: Denies change in pigmentation and Denies rash Neurologic Neurologic: Denies headache(s), Denies numbness and Denies weakness Endocrine Endocrine: Denies palpitations PFSH All Active Problems Enteritis (Acute) Nail dystrophy (Acute) Colorectal polyp detected on colonoscopy (Acute ~03/10/19) S/P colonoscopy (Acute ~03/10/19) Encounter for screening colonoscopy (Acute) Medical History Atherosclerosis Bilateral knee pain Chronic insomnia Chronic maxillary sinusitis Constipation Depression Detached retina Dizziness Fusion of lumbar spine 04/2022, [facility] GERD (gastroesophageal reflux disease) Hearing loss, bilateral Hyperlipidemia Insomnia Low back pain Menopause Obesity Osteoarthritis Smoker Thyroid nodule Vertigo Surgical History History of arthroscopy of right knee History of colonoscopy History of tonsillectomy Hx of detached retina repair OS x 2 w/contact Social History Smoking/Tobacco Use Status: Current every day Tobacco Type: cigarettes Tobacco: How many years used: 50 Smoking risk assessment performed?: Yes Alcohol Intake: never Drug use: Never Substance use type: does not use Number of Children: 0 current occupation: disabled What is your relationship status?: Panel score (0-1 are the most socially isolated patients): 1 Do you feel safe at home: Yes Do you feel safe in your relationship?: Yes Exam Const General: no acute distress, well developed, well groomed and not in acute distress Nutritional Appearance: well nourished Orientation: alert and oriented x3 HENMT Head: normocephalic and atraumatic Ears: external ears normal Mouth: oropharynx normal and moist mucous membranes Throat: posterior oropharynx normal Eyes Conjunctivae: conjunctivae normal Neck Neck: full ROM and supple Chest Chest: normal inspection of the chest Resp Effort & Inspection: normal respiratory effort Auscultation: clear to auscultation bilaterally Cardio Rate: regular rate Rhythm: regular rhythm Heart Sounds: no murmurs and no rubs GI Inspection: normal to inspection Palpation: soft and other (non distended) Auscultation: normal bowel sounds Other: Diffusely tender to palpation (mild) with no guarding or rebound, belly is non tympanetic, ND Skin General skin exam: no rashes or lesions noted and other (pink, warm, dry) Neuro General: patient alert, patient awake and patient oriented x3 Speech: speech normal Motor: other (BERNAL) Sensory Exam: no sensory deficits noted Extrem General: normal to inspection, full ROM and pedal edema present Psych Mental Status: mental status grossly normal Speech and Movement: speech and movement normal Affect: normal affect Course Vital Signs Vital signs: Vital Signs Temperature 36.2 C L 12/15/22 17:45 Pulse 123 H 12/15/22 17:45 Respiratory Rate 20 12/15/22 17:45 Blood Pressure 140/90 12/15/22 17:45 Pulse Oximetry 96 12/15/22 17:45 Temperature 36.2 C L 12/15/22 17:45 Pulse 123 H 12/15/22 17:45 Respiratory Rate 20 12/15/22 17:45 Respiratory Effort Normal, Non-Labored 12/15/22 18:07 Blood Pressure 140/90 12/15/22 17:45 Blood Pressure Position Sitting 12/15/22 17:45 Pulse Oximetry 96 12/15/22 17:45 Oxygen Delivery Method Room Air 12/15/22 17:45 Oxygen Flow Rate 0 12/15/22 17:45 Pain Level 6 12/15/22 17:45
--- NOTE | 2022-12-15 18:45 | RT.EKG_ITS ---
APPROVED REPORT Exam: Resting ECG Reason for Exam: cp Patient Location: E HR:102 bpm ECG Measurements Heart Rate 102 AXIS WA 145 P 56 QRSd 80 QRS 23 QT 348 T 63 QTc 454 Conclusion Sinus tachycardia...rate> 99 I have reviewed and interpreted ECG and agree with software generated interpretation.
--- NOTE | 2022-12-15 18:46 | DI.RAD_ITS ---
Exam(s) XR CHEST 2V PA LATERAL EXAM: XR CHEST 2V PA LATERAL CLINICAL HISTORY: fever. TECHNIQUE: 2D digital imaging was performed. COMPARISON: CT CT CHEST LUNG CANCER SCREEN from 06/19/2022 FINDINGS: 2 views: Heart size is normal. The mediastinum is not widened. Lungs are clear. No infiltrates nor pleural effusions. IMPRESSION: No acute pulmonary findings. DATA REPOSITORY: RADIATION DOSE DELIVERED:
--- NOTE | 2022-12-15 18:48 | DI.CT_ITS ---
Exam(s) CT ABDOMEN PELVIS WO EXAM: CT ABDOMEN PELVIS WO CLINICAL HISTORY: abd pain, vomiting, fever. TECHNIQUE: Imaging Protocol: Axial computed tomography images with coronal and sagittal reformatted images were created and reviewed CONTRAST MATERIAL: Intravenous: none Oral: None COMPARISON: CT ABD PELVIS WO CONTRAST from 09/03/2017 FINDINGS: VISUALIZED LUNG BASES: Benign-appearing increased markings in the lateral basal segment of the right lower lobe, unchanged from 2018.. No nodules nor pleural effusions evident in the lung bases. ABDOMEN: There is a small amount of ascites in the dependent aspect of the pelvis. There is no ascites in the upper abdomen. LIVER: Liver is again noted be hypodense consistent with steatosis. There are no obvious discrete fo radhika hepatic lesions evident. GALLBLADDER/BILIARY: Mild gallbladder sludge. No radiopaque calculi. No gallbladder wall edema. Bi liary tree is not dilated. CBD is not dilated. PANCREAS: No evidence of pancreatic mass nor dilatation of the pancreatic duct. SPLEEN: Spleen is not enlarged. No obvious intrasplenic lesions. ADRENALS: Small hypodense nodule in the medial limb of the left adrenal gland is unchanged from 2018 and most probably represents a small benign adenoma measuring 9 x 10 mm. No findings in the opposite -right adrenal gland. KIDNEYS:No cysts evident. No solid renal masses. No calculi nor hydronephrosis. . ABDOMINAL AORTA: Abdominal aorta is not enlarged. LYMPH NODES: There is no retroperitoneal nor paraaortic adenopathy. ABDOMINAL WALL: No evidence of significant anterior abdominal wall nor inguinal hernia. GI: There are a few dilated small bowel loops centrally and left of center measuring up to 3 cm. No associated mesenteric swirl sign. Small amount of ascites in the dependent aspect of the pelvis. PELVIS: LYMPH NODES: There is no intrapelvic nor inguinal adenopathy. GI: No evidence of appendicitis.There is no significant sigmoid diverticular disease. URINARY BLADDER: No calculi nor obvious masses evident REPRODUCTIVE: Calcified uterine fibroids. No ovarian masses evident. Fluid in the cul-de-sac noted. OSSEOUS: There is fusion hardware in the lower lumbar spine. There is compression fracture of superi or endplate L1 approximately 50 percent which was not evident in 2018. However does not appear acute .. No significant osseous lesions IMPRESSION: 1. Compared to the prior CT scan of September 2017 there are now some a dilated small bowel loops rangi ng up to 3 cm diameter. There is also small amount of ascitic fluid in the dependent aspect of the p nancy. These findings are other consistent with enteritis or developing small-bowel obstruction shweta tereso. 2. Hepatic steatosis again noted. Correlation with appropriate hepatic blood work recommended. 3. Stable small left adrenal nodule, unchanged from 2018 and therefore benign adenoma. 4. There is an L1 compression fracture which was not evident in 2018 but does not appear acute. In a ddition, there is fusion hardware in the lower lumbar spine L4-5 level which was not previously prese nt. First read by [facility]. Final report called by myself to ER physician 12/16/2022. RADIATION DOSE DELIVERED: 803.3mGy.cm Total DLP DATA REPOSITORY: All CT scans at this facility are submitted to the National Radiology Data Registry (NRDR) Dose Index Registry (DIR) with the [employer] (A[employer]). RADIATION OPTIMIZATION: All CT scans at this facility use at least one of these dose optimization te chniques: automated exposure control; mA and/or kV adjustment per patient size (includes targeted exa ms where dose is matched to clinical indication); or iterative reconstruction.
[2022-12-15] MEDS: Ondansetron 4 MG/2 ML VIAL 8 MG IVP (18:49)
[2022-12-15] MEDS: Normal Saline 1,000 ML 1000 ML IV (18:49)
[2022-12-15 19:09] LABS: Abs Immature Grans 0.07 10^3/uL (0.0-0.06); Absolute Eosinophil Count 0.02 10^3/uL (0.0-0.7); Basophils % 0.2; Eosinophils % 0.1; HCT 49.2 % (36.0-46.0); HGB 16.9 g/dL (11.2-15.7); Immature Grans % 0.4; Lymphocytes % 16.9; MCHC 34.3 % (32.0-36.0); MCV 85 fL (80-95); MPV 9.6 fL (8.0-11.0); Monocytes % 7.6; Neutrophils % 74.8; Platelet Count 401 10^3/uL (130-400); RBC 5.82 10^6/uL (3.93-5.22); RDW 13.7 % (11.7-14.6); WBC 16.89 10^3/uL (4.4-10.8)
[2022-12-15 19:16] LABS: Absolute Basophil Count 0.03 10^3/uL (0.0-0.2); Absolute Lymphocyte Count 2.85 10^3/uL (1.2-3.4); Absolute Monocyte Count 1.28 10^3/uL (0.1-0.8); Absolute Neutrophil Count 12.63 10^3/uL (1.2-6.7)
[2022-12-15 19:30] LABS: ALT 28 U/L (14-59); AST 18 U/L (15-37); Albumin 4.2 g/dL (3.4-5.0); Alkaline Phosphatase 96 U/L (46-116); Anion Gap 13.5 mmol/L (3-11); BUN 14 mg/dL (7-18); Bilirubin, Total 0.5 mg/dL (0.2-1.0); CO2 25.5 mmol/L (21.0-32.0); CREATININE 1.2 mg/dL (0.55-1.02); Chloride 100 mmol/L (98-107); Glucose 139 mg/dL (74-106); Lipase 47 U/L (16-77); Magnesium 1.8 mg/dL (1.8-2.4); Potassium 3.8 mmol/L (3.5-5.1); Sodium 139 mmol/L (136-145); Total Protein 8.1 g/dL (6.4-8.2); Troponin I < 50 ng/L (<or=60)
--- NOTE | 2022-12-15 20:20 | DI.VRAD_ITS ---
PROCEDURE INFORMATION: Exam: XR Chest Exam date and time: 12/15/2022 8:03 PM Age: 72 years old Clinical indication: Fever TECHNIQUE: Imaging protocol: Radiologic exam of the chest. Views: 2 views. COMPARISON: CT CHEST LUNG CANCER SCREEN 06/19/2022 9:31 AM FINDINGS: Lungs: Unremarkable. No consolidation. Pleural spaces: Unremarkable. No pleural effusion. No pneumothorax. Heart/Mediastinum: Unremarkable. No cardiomegaly. Bones/joints: Degenerative thoracic spine. IMPRESSION: 1. No acute findings. 2. Clear lungs and pleural space. 3. Degenerative thoracic spine features Dictated and Authenticated by: Ziyad Odonnell MD. Ordering:LUIS ARMANDO Ledesma MD
[2022-12-15] MEDS: Normal Saline 1,000 ML 1190 ML IV (20:29)
--- NOTE | 2022-12-15 20:33 | DI.VRAD_ITS ---
PROCEDURE INFORMATION: Exam: CT Abdomen And Pelvis Without Contrast Exam date and time: 12/15/2022 7:58 PM Age: 72 years old Clinical indication: Nausea and vomiting; Abdominal pain; Generalized; Additional info: Abd pain, vomiting, fever TECHNIQUE: Imaging protocol: Computed tomography of the abdomen and pelvis without contrast. Radiation optimization: All CT scans at this facility use at least one of these dose optimization techniques: automated exposure control; mA and/or kV adjustment per patient size (includes targeted exams where dose is matched to clinical indication); or iterative reconstruction. COMPARISON: CT ABD PELVIS WO CONTRAST 09/03/2017 1:01 PM FINDINGS: Lungs: Lung bases are clear. Pleural spaces: No pleural effusion. Heart: Normal heart size. No pericardial effusion. No coronary artery atherosclerotic calcium is visible. Liver: Diffuse moderate to severe fatty liver infiltration. Gallbladder and bile ducts: Gallbladder with some hyperdense contents. This could represent sludge. No discrete calcified stones. No gallbladder wall thickening or biliary dilatation. Pancreas: Moderate to severe pancreatic atrophy. No acute features. Spleen: Normal. No splenomegaly. Adrenal glands: No acute adrenal pathology. Small adrenal nodule on the medial limb of the left adrenal gland. This measures 12 x 7 mm. No change since 2018 consistent with a benign adenoma. There is some fat intrinsically consistent with this being a lipid rich adenoma. Kidneys and ureters: The kidneys bilaterally are unremarkable. Normal attenutation. No hydronephrosis. No calculi. Stomach and bowel: Gastric morphology is unremarkable. No edema. No gastric outlet obstruction. Small sliding hiatal hernia. No acute features. Small bowel loops without diana obstruction. Minor proximal wall thickening and some scattered air-fluid levels. This could represent an enteritis. No pneumatosis intestinalis. No mesenteric edema. Large bowel loops are unremarkable. No edema. No mass or obstructive change. Appendix: A non inflamed appendix is identified. Series 2, images 49-53. Intraperitoneal space: Scant free fluid in the pelvic cul-de-sac with simple attenuation coefficient. No free air in the abdomen. Vasculature: Unremarkable. No abdominal aortic aneurysm. Lymph nodes: Unremarkable. No enlarged lymph nodes. Urinary bladder: Unremarkable as visualized. Reproductive: Retroverted uterus with degenerative type fibroid calcifications. No acute features of the uterus or adnexa. Bones/joints: Degenerative lumbar spine changes. Previous L4-L5 fusion. Old compression fracture of L1. Probable unilateral left-sided L5 pars defect. This has progressed since 2018, but has chronic features. Soft tissues: Unremarkable. IMPRESSION: 1. No mechanical bowel obstruction evident. Proximal small bowel features suggesting enteritis. 2. Fatty liver infiltration. 3. Gallbladder sludge. No acute biliary tract findings. 4. Stable left adrenal nodule consistent with a small benign adenoma. 5. Uterine atrophy. 6. Scant simple appearing free fluid in the pelvic cul-de-sac. 7. Lumbar spine degenerative change and L4-L5 fusion. Compression fracture of L1 with chronic appearance. Dictated and Authenticated by: Ziyad Odonnell MD. Ordering:LUIS ARMANDO Ledesma MD
[2022-12-15 22:08] LABS: Troponin I < 50 ng/L (<or=60)
[2022-12-15] MEDS: ACETAMINOPHEN 1,000 MG/100 ML BTL 400 MG IVPB (22:28)
[2022-12-15] MEDS: Dicyclomine 20 MG TAB PO (22:28)
[2022-12-15 23:58] LABS: C Diff PCR Negative (Negative)
--- NOTE | 2022-12-16 07:17 | NUR.NOTE ---
Nursing Note: Accessed chart to determine orders for EKG and to determine whether or not one needs to be cancelled.
--- NOTE | 2022-12-16 16:51 | NUR.NOTE ---
Nursing Note: Opened pt chart to determine disposition of the patient.
--- NOTE | 2022-12-16 17:49 | W.ED.FU ---
Date of service: 12/16/22 Time of Service: 17:49 Follow Up Plan: received call from Dr. Reeder from radiology who read the ct today, states can't exclude sbo based on ct. ATtempted to call patient, left a message to call back to advise how she is feeling to determine if she should return to the ED for reevaluation
--- NOTE | 2022-12-16 18:29 | W.ED.FU ---
Date of service: 12/16/22 Time of Service: 18:29 Follow Up Plan: pt and called back, no vomiting, still has pain but has improved since yesterday. Discussed with them if pain worsens or develops vomiting to return to the ED and they verbalized understanding
[2022-12-18 11:40] LABS: Campylobacter PCR Negative (Negative); Salmonella PCR Negative (Negative); Shiga Toxin PCR Negative (Negative); Shigella/Enteroinvasive Ecoli Negative (Negative)
== END 2022-12-15 23:54 | disposition home or self-care (01) ==
PROVIDERS: Emergency Provider Emergency Medicine; PCP Family Medicine
DX: K52.9 Noninfective gastroenteritis and colitis, unspecified (principal); K76.0 Fatty (change of) liver, not elsewhere classified; K82.8 Other specified diseases of gallbladder; N85.8 Other specified noninflammatory disorders of uterus; M47.816 Spondylosis without myelopathy or radiculopathy, lumbar region; Z98.1 Arthrodesis status; M47.814 Spondylosis without myelopathy or radiculopathy, thoracic region
CPT/HCPCS: 36415; 80053; 83690; 87040; 87493; 87505; 93005; 96361; 96374; 96375; 99284; 71046; 74176; 83735; 84484; 85025; 93010; J0131; J2405

== ENCOUNTER → 2023-04-19 14:04 | Outpatient (CLI) | payer MEDICARE, OTHER, SELFPAY ==
--- NOTE | 2023-04-19 | DI.RAD_ITS ---
Exam(s) XR KNEE LT 3V AP,LAT,MARY EXAM: XR KNEE LT 3V AP,LAT,MARY CLINICAL HISTORY: PUNCTURE WOUND M12.562. TECHNIQUE: 2D digital imaging was performed. COMPARISON: No exams were available for comparison FINDINGS: 3 views No evidence of acute fracture. Mild anterior swelling is noted in the soft tissues anterior to the p atella. No patellar fracture evident. Calcification noted at the insertion of the quadriceps tendon upon the anterosuperior aspect of the patella. There appears to be a small amount of increased join t fluid. There is no narrowing of the medial lateral compartments on the weight-bearing view. No os teophytes. IMPRESSION: Anterior soft tissue swelling. No fractures. There does appear to be a small joint effusion. DATA REPOSITORY: RADIATION DOSE DELIVERED:
== END ==
PROVIDERS: PCP Family Medicine; Visit Provider Nurse Practitioner Family
DX: M12.562 Traumatic arthropathy, left knee
CPT/HCPCS: 73562

== ENCOUNTER → 2024-02-06 09:58 | Outpatient (BNVA) | payer MEDICARE, OTHER, SELFPAY | PROVIDERS: PCP Family Medicine; Referring Provider Family Medicine; Visit Provider Podiatrist | DX: L60.0 Ingrowing nail (principal); L60.3 Nail dystrophy; M79.672 Pain in left foot | CPT/HCPCS: 11750 ==

== ENCOUNTER → 2024-02-27 11:27 | Outpatient (BNVA) | payer MEDICARE, OTHER, SELFPAY | PROVIDERS: PCP Family Medicine; Referring Provider Family Medicine; Visit Provider Podiatrist | DX: L60.0 Ingrowing nail (principal); L60.3 Nail dystrophy; M79.672 Pain in left foot; M79.675 Pain in left toe(s) | CPT/HCPCS: 99213 ==

== ENCOUNTER 2024-08-04 16:20 | Outpatient (REF) | payer MEDICARE, OTHER, SELFPAY ==
[2024-08-04 16:04] LABS: Abs Immature Grans 0.04 10^3/uL (0.0-0.06); Absolute Eosinophil Count 0.39 10^3/uL (0.0-0.7); Absolute Lymphocyte Count 3.07 10^3/uL (1.2-3.4); Basophils % 0.6 %; Eosinophils % 3.1 %; HCT 39.5 % (36.0-46.0); HGB 13.6 g/dL (11.2-15.7); Immature Grans % 0.3 %; Lymphocytes % 24.3 %; MCH 30.6 pg (27.0-33.0); MCHC 34.4 % (32.0-36.0); MCV 89 fL (80-95); MPV 10.2 fL (8.0-11.0); Monocytes % 5.5 %; Neutrophils % 66.2 %; Platelet Count 306 10^3/uL (130-400); RBC 4.44 10^6/uL (3.93-5.22); RDW-SD 45.3 fL; WBC 12.65 10^3/uL (4.4-10.8)
[2024-08-04 16:11] LABS: Absolute Basophil Count 0.08 10^3/uL (0.0-0.2); Absolute Neutrophil Count 8.37 10^3/uL (1.2-6.7)
[2024-08-04 16:53] LABS: ALT 24 U/L (14-59); AST 20 U/L (15-37); Albumin 3.7 g/dL (3.4-5.0); Alkaline Phosphatase 95 U/L (46-116); Anion Gap 8.7 mmol/L (3-11); BUN 7 mg/dL (7-18); Bilirubin, Total 0.29 mg/dL (0.2-1.0); CO2 28.3 mmol/L (21.0-32.0); CREATININE 1.1 mg/dL (0.55-1.02); Calcium 9.4 mg/dL (8.5-10.1); Chloride 103 mmol/L (98-107); Estimated GFR 53.72 (mL/min/1.73m2); Glucose 100 mg/dL (74-106); Potassium 4.9 mmol/L (3.5-5.1); Sodium 140 mmol/L (136-145); Total Protein 7.3 g/dL (6.4-8.2)
[2024-08-06 11:00] LABS: Campylobacter PCR Negative (Negative); Salmonella PCR Negative (Negative); Shiga Toxin PCR Negative (Negative); Shigella/Enteroinvasive Ecoli Negative (Negative)
== END 2024-08-04 16:21 | disposition home or self-care (01) ==
LOC: NCHCN 16:20
PROVIDERS: PCP Family Medicine; Visit Provider Family Medicine
DX: R19.7 Diarrhea, unspecified (principal)
CPT/HCPCS: 80053; 87505; 85025; 87177